=== PATIENT | female | born 1985 | race African-American/Black ===

== ENCOUNTER 2021-10-29 00:09 | Emergency (ER) | payer SELFPAY ==
[~2021-10-29] VITALS: Ht 162.6 cm; Wt 65.8 kg
[2021-10-29 01:13] VITALS: BP 150/83
--- NOTE | 2021-10-29 01:38 | NUR ---
pt was provided with outpatient psych treatment and evaluation resources
--- NOTE | 2021-10-29 01:39 | NUR ---
Patient discharged to home in stable condition. Written and verbal after care instructions given. Patient verbalizes understanding of instruction.
== END 2021-10-29 01:40 | disposition home or self-care (01) ==
LOC: ER 00:22
DX: F22 Delusional disorders (principal); Z88.1 Allergy status to other antibiotic agents; Z60.2 Problems related to living alone